=== PATIENT | female | born 1975 | race Caucasian/White ===

== ENCOUNTER 2017-06-26 05:14 | Emergency (ER) | payer BC ==
[~2017-06-26] VITALS: Ht 170.2 cm; Wt 93.9 kg
[~2017-06-26 05:14] MED LIST: ALBU90OI INH; AMOCLA875 PO; AMPDEX30CR PO; AMPDEX5 PO; ARIP10 PO; AZIT250 PO; Abilify5 MG; Amphetamine Sal30 MG PO; CITA20 PO; CLON1 PO; CODACE30 PO; CODGUAEL PO; CYCL10 PO; DIPH50 PO; DOCU100 PO; DOXY100 PO; DULO60 PO; ERYT.5TO OD; FLUV50 PO; Fluvoxamine Ma100 MG PO; HYDACE5 PO; IBUP800 PO; LEVFLO500 PO; LEVOFLOXACIN5 ML LEFTEYE; MELO7.5 PO; META800 PO; Mobic15 MG PO; ONDA4ODT MM; OXYACE5T PO; OXYACE7.5T PO; OXYC10ER PO; PRED20 PO; PROCODE120 PO; PROM25 PO; PROM25S PR; Pred Forte1 ML LEFTEYE; Prednisone20 MG PO; RISP1 PO; RXCODACET PO; SERT100; SPACE CHAMBER1 EACH MC; TRAM50 PO; TRIA55OI; Tussionex Penn480 ML PO; Ventolin/Prove6.7 GM INH; ZOLP5 PO; Zithromax250 MG PO; [UNRECOGNIZED DRUG - REMARK]
[2017-06-26 05:46] LABS: BASOPHILS ABSOLUTE AUTO 0.04 K/mm3 (0.00-0.23); BASOPHILS PERCENT AUTO 0 % (0-2); EOSINOPHILS ABSOLUTE AUTO 0.19 K/mm3 (0.00-0.68); EOSINOPHILS PERCENT AUTO 2 % (0-6); Hematocrit 41.4 % (33.0-51.0); Hemoglobin 14.1 g/dL (11.5-16.0); IMMATURE GRAN ABSOLUTE AUTO 0.02 K/mm3 (0.00-0.10); IMMATURE GRAN PERCENT AUTO 0 % (0-1); LYMPHOCYTES ABSOLUTE AUTO 3.22 K/mm3 (0.84-5.20); LYMPHOCYTES PERCENT AUTO 30 % (21-46); MONOCYTES ABSOLUTE AUTO 0.66 K/mm3 (0.16-1.47); MONOCYTES PERCENT AUTO 6 % (4-13); Mean Corpuscular HGB 31.4 pg (26.0-34.0); Mean Corpuscular HGB Conc 34.1 g/dL (31.5-36.5); Mean Corpuscular Volume 92 fL (80-100); Mean Platelet Volume 10.4 fL (9.1-12.4); NEUTROPHILS ABSOLUTE AUTO 6.65 K/mm3 (1.96-9.15); NEUTROPHILS PERCENT AUTO 62 % (41-73); Platelet Count 265 K/mm3 (150-400); RDW Coefficient Variation 13.1 % (11.7-14.2); RDW Standard Deviation 44.2 fL (35.1-46.3); Red Blood Cell Count 4.49 M/mm3 (3.80-5.20); White Blood Cell Count 10.78 K/mm3 (4.00-11.30)
[2017-06-26 06:09] LABS: Alanine Aminotransfer (ALT/SGP 27 U/L (12-78); Albumin/Globulin Ratio 1.1 (0.8-1.8); Alk Phos 96 U/L (50-136); Anion Gap 9 mmol/L (6-16); Aspartate Aminotrans (AST/SGOT 19 U/L (12-37); Bilirubin, Total 0.6 mg/dL (0.1-1.0); Blood Urea Nitrogen 15 mg/dL (8-24); Bun/Creatinine Ratio 16.6 (12.0-20.0); CO2, Blood 23 mmol/L (21-32); Calcium, Blood 9.2 mg/dL (8.5-10.1); Chloride, Blood 107 mmol/L (98-108); Creatinine, Blood 0.91 mg/dL (0.40-1.00); Globulin, Blood 3.6 g/dL (2.2-4.0); Glomerular Filtration Rate >60 (60-); Glucose, Blood 75 mg/dL (70-99); Potassium, Blood 3.1 mmol/L (3.5-5.5); Sodium, Blood 139 mmol/L (136-145); Total Protein, Blood 7.6 g/dL (6.4-8.2); Troponin I <0.015 ng/mL (0.000-0.040)
[2017-06-26] MEDS ORDERED: Albuterol2.5 MG/0.5 INH (06:50)
[2017-06-26] MEDS ORDERED: Prednisone20 MG PO (06:50)
[2018-04-29] MEDS ORDERED: Naltrexone HCl50 MG PO (22:08)
[2018-04-29] MEDS ORDERED: Fluvoxamine Ma100 MG PO (22:09)
[2018-04-29] MEDS ORDERED: BUPR100ER PO (22:09)
[2018-04-29] MEDS ORDERED: Robaxin750 MG PO (22:09)
[2018-04-30] MEDS ORDERED: CYCL10 PO (00:38)
== END 2017-06-26 07:17 | disposition home or self-care (01) ==
LOC: ER 05:14
PROVIDERS: Emergency Medicine
DX: J06.9 Acute upper respiratory infection, unspecified (principal); J98.01 Acute bronchospasm; R09.1 Pleurisy; F17.200 Nicotine dependence, unspecified, uncomplicated; F41.9 Anxiety disorder, unspecified; F32.9 Major depressive disorder, single episode, unspecified; F90.9 Attention-deficit hyperactivity disorder, unspecified type; Z88.1 Allergy status to other antibiotic agents; Z91.040 Latex allergy status; Z79.899 Other long term (current) drug therapy
CPT/HCPCS: 36415; 71046; 80053; 83690; 83880; 84484; 85025; 93005; 93010; 94640; 96361; 96374; 96375; 99284; J1170; J2405; J2930; J7030

== ENCOUNTER 2017-06-30 01:29 | Inpatient (IN) | payer BC ==
[~2017-06-30] VITALS: Ht 170.2 cm; Wt 100.7 kg
[~2017-06-30 01:29] MED LIST changes: +Albuterol2.5 MG/0.5 INH
[2017-06-30 02:55] LABS: BASOPHILS ABSOLUTE AUTO 0.04 K/mm3 (0.00-0.23); BASOPHILS PERCENT AUTO 0 % (0-2); EOSINOPHILS ABSOLUTE AUTO 0.02 K/mm3 (0.00-0.68); EOSINOPHILS PERCENT AUTO 0 % (0-6); Hematocrit 52.1 % (33.0-51.0); Hemoglobin 17.4 g/dL (11.5-16.0); IMMATURE GRAN ABSOLUTE AUTO 0.16 K/mm3 (0.00-0.10); IMMATURE GRAN PERCENT AUTO 1 % (0-1); LYMPHOCYTES ABSOLUTE AUTO 1.65 K/mm3 (0.84-5.20); LYMPHOCYTES PERCENT AUTO 9 % (21-46); MONOCYTES ABSOLUTE AUTO 0.63 K/mm3 (0.16-1.47); MONOCYTES PERCENT AUTO 4 % (4-13); Mean Corpuscular HGB 30.9 pg (26.0-34.0); Mean Corpuscular HGB Conc 33.4 g/dL (31.5-36.5); Mean Corpuscular Volume 92 fL (80-100); Mean Platelet Volume 10.5 fL (9.1-12.4); NEUTROPHILS PERCENT AUTO 86 % (41-73); Platelet Count 323 K/mm3 (150-400); RDW Coefficient Variation 12.9 % (11.7-14.2); RDW Standard Deviation 43.7 fL (35.1-46.3); Red Blood Cell Count 5.64 M/mm3 (3.80-5.20)
[2017-06-30 03:14] LABS: Magnesium, Blood 2.2 mg/dL (1.6-2.4)
[2017-06-30 03:20] LABS: Acetaminophen, Random <2.0 ug/mL (10.0-30.0); Alanine Aminotransfer (ALT/SGP 26 U/L (12-78); Albumin, Blood 4.2 g/dL (3.4-5.0); Albumin/Globulin Ratio 1.1 (0.8-1.8); Alk Phos 83 U/L (50-136); Anion Gap 10 mmol/L (6-16); Aspartate Aminotrans (AST/SGOT 13 U/L (12-37); Bilirubin, Total 0.7 mg/dL (0.1-1.0); Blood Urea Nitrogen 17 mg/dL (8-24); Bun/Creatinine Ratio 19.7 (12.0-20.0); CO2, Blood 25 mmol/L (21-32); Calcium, Blood 10.2 mg/dL (8.5-10.1); Chloride, Blood 101 mmol/L (98-108); Creatinine, Blood 0.86 mg/dL (0.40-1.00); Ethanol (Alcohol), Blood, Med <3 mg/dL; Globulin, Blood 3.9 g/dL (2.2-4.0); Glomerular Filtration Rate >60 (60-); Glucose, Blood 113 mg/dL (70-99); Potassium, Blood 3.8 mmol/L (3.5-5.5); Salicylate 4.1 mg/dL (2.8-20.0); Sodium, Blood 136 mmol/L (136-145); Total Protein, Blood 8.1 g/dL (6.4-8.2)
[2017-06-30 03:22] LABS: CPK Creatine Kinase 76 U/L (26-193); Creatine Kinase MB 2.1 ng/mL (0.0-3.6); Creatine Kinase MB Index 2.8 (0.0-4.0); Troponin I <0.015 ng/mL (0.000-0.040)
[2017-06-30 05:28] LABS: Source, Urine Catheter
[2017-06-30 05:48] LABS: Appearance, Urine Clear (Clear); Bilirubin, Urine 1+ (Neg); Blood, Urine Neg (Neg); Color, Urine Yellow (P-Yellow); Glucose Qualitative, Urine 1+ (Neg); Ketones, Urine 1+ (Neg); Leukocyte Esterase, Urine 1+ (Neg); Nitrite, Urine Neg (Neg); Protein, Urine 1+ (Neg); Urobilinogen, Urine 1+ (Normal)
[2017-06-30 05:49] LABS: Bacteria Mod /hpf; Calcium Oxalate Crystals Few /hpf; Mucus Light (0-Heavy); Red Blood Cells, Urine 0-2 /hpf (0-2); Squamous Epithelial Cells Few /hpf (Few); White Blood Cells, Urine 0-2 /hpf (0-5)
[2017-06-30 05:54] LABS: U Amphetamine Screen DETECTED; U Barbituate Screen Not Detected; U Benzodiazapine Screen Not Detected; U Buprenorphine Screen Not Detected; U Cannabinoids Screen DETECTED; U Cocaine Screen Not Detected; U Methadone Screen Not Detected; U Methamphetamine Screen Not Detected; U Opiates Screen DETECTED; U Oxycodone Screen DETECTED; U Phencyclidine Screen Not Detected; U Propoxyphene Screen Not Detected
[2017-07-01 05:23] LABS: BASOPHILS ABSOLUTE AUTO 0.03 K/mm3 (0.00-0.23); BASOPHILS PERCENT AUTO 0 % (0-2); EOSINOPHILS ABSOLUTE AUTO 0.01 K/mm3 (0.00-0.68); EOSINOPHILS PERCENT AUTO 0 % (0-6); Hematocrit 38.1 % (33.0-51.0); Hemoglobin 12.5 g/dL (11.5-16.0); IMMATURE GRAN ABSOLUTE AUTO 0.11 K/mm3 (0.00-0.10); IMMATURE GRAN PERCENT AUTO 1 % (0-1); LYMPHOCYTES ABSOLUTE AUTO 1.14 K/mm3 (0.84-5.20); LYMPHOCYTES PERCENT AUTO 6 % (21-46); MONOCYTES ABSOLUTE AUTO 1.17 K/mm3 (0.16-1.47); MONOCYTES PERCENT AUTO 6 % (4-13); Mean Corpuscular HGB 30.5 pg (26.0-34.0); Mean Corpuscular HGB Conc 32.8 g/dL (31.5-36.5); Mean Corpuscular Volume 93 fL (80-100); Mean Platelet Volume 10.1 fL (9.1-12.4); NEUTROPHILS ABSOLUTE AUTO 18.18 K/mm3 (1.96-9.15); NEUTROPHILS PERCENT AUTO 88 % (41-73); Platelet Count 216 K/mm3 (150-400); White Blood Cell Count 20.64 K/mm3 (4.00-11.30)
[2017-07-01 05:53] LABS: Anion Gap 8 mmol/L (6-16); Blood Urea Nitrogen 20 mg/dL (8-24); Bun/Creatinine Ratio 21.6 (12.0-20.0); CO2, Blood 26 mmol/L (21-32); Chloride, Blood 105 mmol/L (98-108); Creatinine, Blood 0.93 mg/dL (0.40-1.00); Glomerular Filtration Rate >60 (60-); Glucose, Blood 92 mg/dL (70-99); Potassium, Blood 4.2 mmol/L (3.5-5.5); Sodium, Blood 139 mmol/L (136-145)
[2017-07-01 05:54] LABS: Calcium, Blood 8.2 mg/dL (8.5-10.1)
[2017-07-02 04:55] LABS: BASOPHILS ABSOLUTE AUTO 0.01 K/mm3 (0.00-0.23); BASOPHILS PERCENT AUTO 0 % (0-2); EOSINOPHILS ABSOLUTE AUTO 0.17 K/mm3 (0.00-0.68); EOSINOPHILS PERCENT AUTO 1 % (0-6); Hematocrit 34.4 % (33.0-51.0); Hemoglobin 11.2 g/dL (11.5-16.0); IMMATURE GRAN ABSOLUTE AUTO 0.08 K/mm3 (0.00-0.10); IMMATURE GRAN PERCENT AUTO 1 % (0-1); LYMPHOCYTES ABSOLUTE AUTO 1.16 K/mm3 (0.84-5.20); LYMPHOCYTES PERCENT AUTO 9 % (21-46); MONOCYTES ABSOLUTE AUTO 0.54 K/mm3 (0.16-1.47); MONOCYTES PERCENT AUTO 4 % (4-13); Mean Corpuscular HGB 30.7 pg (26.0-34.0); Mean Corpuscular HGB Conc 32.6 g/dL (31.5-36.5); Mean Corpuscular Volume 94 fL (80-100); Mean Platelet Volume 10.1 fL (9.1-12.4); NEUTROPHILS ABSOLUTE AUTO 11.32 K/mm3 (1.96-9.15); NEUTROPHILS PERCENT AUTO 85 % (41-73); Platelet Count 205 K/mm3 (150-400); RDW Coefficient Variation 13.1 % (11.7-14.2); RDW Standard Deviation 45.1 fL (35.1-46.3); Red Blood Cell Count 3.65 M/mm3 (3.80-5.20); White Blood Cell Count 13.28 K/mm3 (4.00-11.30)
[2017-07-02 05:20] LABS: Anion Gap 6 mmol/L (6-16); Blood Urea Nitrogen 11 mg/dL (8-24); Bun/Creatinine Ratio 13.2 (12.0-20.0); CO2, Blood 27 mmol/L (21-32); Calcium, Blood 7.8 mg/dL (8.5-10.1); Chloride, Blood 105 mmol/L (98-108); Creatinine, Blood 0.83 mg/dL (0.40-1.00); Glomerular Filtration Rate >60 (60-); Glucose, Blood 94 mg/dL (70-99); Magnesium, Blood 2.1 mg/dL (1.6-2.4); Phosphorus, Blood 1.5 mg/dL (2.5-4.9); Potassium, Blood 3.6 mmol/L (3.5-5.5); Sodium, Blood 138 mmol/L (136-145)
[2017-07-05] MEDS ORDERED: HYDR1TAB94 PO (17:43)
[2018-04-29] MEDS ORDERED: Naltrexone HCl50 MG PO (22:08)
[2018-04-29] MEDS ORDERED: BUPR100ER PO (22:09)
[2018-04-29] MEDS ORDERED: Robaxin750 MG PO (22:09)
[2018-04-29] MEDS ORDERED: Fluvoxamine Ma100 MG PO (22:09)
[2018-04-30] MEDS ORDERED: CYCL10 PO (00:38)
== END 2017-07-05 18:00 | disposition home or self-care (01) | DRG 853 ==
LOC: ER 01:29 → SURS 06:16
PROVIDERS: Emergency Medicine; Surgery
PROC: 0D9670Z Drainage of Stomach with Drainage Device, Via Natural or Artificial Opening (ICD-10-PCS; 2017-06-30)
PROC: 0DU907Z Supplement Duodenum with Autologous Tissue Substitute, Open Approach (ICD-10-PCS; principal; 2017-06-30 07:45)
DX: A41.9 Sepsis, unspecified organism (principal); K25.5 Chronic or unspecified gastric ulcer with perforation; K65.9 Peritonitis, unspecified; F41.9 Anxiety disorder, unspecified; G47.9 Sleep disorder, unspecified; G89.29 Other chronic pain; M54.9 Dorsalgia, unspecified; M19.90 Unspecified osteoarthritis, unspecified site; F17.200 Nicotine dependence, unspecified, uncomplicated; F43.10 Post-traumatic stress disorder, unspecified; F32.9 Major depressive disorder, single episode, unspecified; Z79.52 Long term (current) use of systemic steroids; Z79.899 Other long term (current) drug therapy; Z88.1 Allergy status to other antibiotic agents; Z91.040 Latex allergy status
CPT/HCPCS: 36415; 74176; 80048; 80053; 81001; 82550; 82553; 83605; 83690; 83735; 84100; 84484; 85025; 87070; 87075; 87086; 87205; 87338; 93005; 93010; 94762; 96361; 96365; 96375; 96376; 99285; C9113; G0480; J1100; J1170; J1200; J1630; J1650; J1885; J2405; J2543; J3010; J7030; J7120

== ENCOUNTER 2017-09-26 09:33 | Emergency (ER) | payer BC ==
[~2017-09-26] VITALS: Ht 170.2 cm; Wt 95.2 kg
[~2017-09-26 09:33] MED LIST changes: +HYDR1TAB94 PO
[2017-09-26] MEDS ORDERED: OMEPRAZOLE MAGN20 MG PO (10:00)
[2017-09-26] MEDS ORDERED: ACET325 PO (10:01)
[2017-09-26] MEDS ORDERED: Percocet 5-3251 EACH PO (11:09)
== END 2017-09-26 11:24 | disposition home or self-care (01) ==
LOC: ER 09:33
DX: M54.5 Low back pain (principal); Z88.1 Allergy status to other antibiotic agents; Z91.040 Latex allergy status; Z79.899 Other long term (current) drug therapy; F41.9 Anxiety disorder, unspecified; F90.9 Attention-deficit hyperactivity disorder, unspecified type; F17.210 Nicotine dependence, cigarettes, uncomplicated; F32.9 Major depressive disorder, single episode, unspecified
CPT/HCPCS: 99283

== ENCOUNTER 2017-10-16 07:56 | Day surgery (SDC) | payer BC ==
[~2017-10-16] VITALS: Ht 172.7 cm; Wt 95.2 kg
[~2017-10-16 07:56] MED LIST changes: +ACET325 PO; +OMEPRAZOLE MAGN20 MG PO; +Percocet 5-3251 EACH PO
== END 2017-10-16 09:48 | disposition home or self-care (01) ==
LOC: ORSCSDS 07:56
PROVIDERS: Surgery
PROC: 0DB68ZX Excision of Stomach, Via Natural or Artificial Opening Endoscopic, Diagnostic (ICD-10-PCS; principal; 2017-10-16 09:15)
DX: K25.5 Chronic or unspecified gastric ulcer with perforation (principal); K21.9 Gastro-esophageal reflux disease without esophagitis; J45.909 Unspecified asthma, uncomplicated; F41.8 Other specified anxiety disorders; Z87.891 Personal history of nicotine dependence; Z79.899 Other long term (current) drug therapy
CPT/HCPCS: J7120

== ENCOUNTER 2019-04-12 11:56 | Emergency (ER) | payer BC ==
[~2019-04-12] VITALS: Ht 170.2 cm; Wt 104.3 kg
[~2019-04-12 11:56] MED LIST changes: +BUPR100ER PO; +Naltrexone HCl50 MG PO; +Robaxin750 MG PO
[2019-04-12 13:05] LABS: BASOPHILS ABSOLUTE AUTO 0.06 K/mm3 (0.00-0.23); BASOPHILS PERCENT AUTO 1 % (0-2); EOSINOPHILS ABSOLUTE AUTO 0.09 K/mm3 (0.00-0.68); EOSINOPHILS PERCENT AUTO 1 % (0-6); Hematocrit 40.9 % (33.0-51.0); Hemoglobin 12.7 g/dL (11.5-16.0); IMMATURE GRAN ABSOLUTE AUTO 0.04 K/mm3 (0.00-0.10); IMMATURE GRAN PERCENT AUTO 0 % (0-1); LYMPHOCYTES ABSOLUTE AUTO 1.78 K/mm3 (0.84-5.20); LYMPHOCYTES PERCENT AUTO 17 % (21-46); MONOCYTES ABSOLUTE AUTO 0.69 K/mm3 (0.16-1.47); MONOCYTES PERCENT AUTO 7 % (4-13); Mean Corpuscular HGB 26.6 pg (26.0-34.0); Mean Corpuscular HGB Conc 31.1 g/dL (31.5-36.5); Mean Corpuscular Volume 86 fL (80-100); Mean Platelet Volume 10.3 fL (9.1-12.4); NEUTROPHILS ABSOLUTE AUTO 7.94 K/mm3 (1.96-9.15); NEUTROPHILS PERCENT AUTO 75 % (41-73); Platelet Count 266 K/mm3 (150-400); RDW Coefficient Variation 15.9 % (11.7-14.2); RDW Standard Deviation 50.1 fL (35.1-46.3); Red Blood Cell Count 4.77 M/mm3 (3.80-5.20)
[2019-04-12 13:21] LABS: International Normalized Ratio 0.89; Prothrombin Time Results 9.5 Sec (9.7-11.5)
[2019-04-12 13:28] LABS: Alanine Aminotransfer (ALT/SGP 22 U/L (12-78); Albumin, Blood 3.8 g/dL (3.4-5.0); Albumin/Globulin Ratio 0.9 (0.8-1.8); Alk Phos 116 U/L (50-136); Anion Gap 6 mmol/L (6-16); Aspartate Aminotrans (AST/SGOT 17 U/L (12-37); Bilirubin, Total 0.3 mg/dL (0.1-1.0); Blood Urea Nitrogen 8 mg/dL (8-24); Bun/Creatinine Ratio 7.7 (12.0-20.0); CO2, Blood 28 mmol/L (21-32); Calcium, Blood 8.6 mg/dL (8.5-10.1); Chloride, Blood 105 mmol/L (98-108); Creatinine, Blood 1.04 mg/dL (0.40-1.00); Globulin, Blood 4.3 g/dL (2.2-4.0); Glomerular Filtration Rate >60 (60-); Glucose, Blood 88 mg/dL (70-99); Sodium, Blood 139 mmol/L (136-145); Total Protein, Blood 8.1 g/dL (6.4-8.2)
[2019-04-12] MEDS ORDERED: AMPDEX5 PO (14:21)
[2019-04-12 14:23] LABS: Source, Urine Clean Catch
[2019-04-12 14:25] LABS: Bilirubin, Urine Neg (Neg); Blood, Urine Neg (Neg); Glucose Qualitative, Urine Neg (Neg); Ketones, Urine Neg (Neg); Leukocyte Esterase, Urine Neg (Neg); Nitrite, Urine Neg (Neg); Protein, Urine Neg (Neg); Specific Gravity, Urine 1.015 (1.003-1.022); Urobilinogen, Urine NORM (Normal); pH, Urine 6.5 (5.0-8.0)
[2019-04-12 14:33] LABS: Appearance, Urine Clear (Clear); Color, Urine Yellow (P-Yellow)
[2019-04-12] MEDS ORDERED: HYDR25SUP PR (14:40)
[2019-04-12] MEDS ORDERED: Kristalose20 GM PO (14:40)
== END 2019-04-12 14:51 | disposition home or self-care (01) ==
LOC: ER 11:56
PROVIDERS: Physician Assistant
DX: K64.9 Unspecified hemorrhoids (principal); K59.00 Constipation, unspecified; F41.9 Anxiety disorder, unspecified; F43.10 Post-traumatic stress disorder, unspecified; F90.9 Attention-deficit hyperactivity disorder, unspecified type; F17.210 Nicotine dependence, cigarettes, uncomplicated; Z88.1 Allergy status to other antibiotic agents; Z91.040 Latex allergy status; Z88.8 Allergy status to other drugs, medicaments and biological substances; Z79.899 Other long term (current) drug therapy
CPT/HCPCS: 36415; 46600; 74018; 80053; 81003; 85025; 85610; 85730; 99283-25

== ENCOUNTER 2019-05-02 16:41 | Emergency (ER) | payer BC ==
[~2019-05-02] VITALS: Ht 170.2 cm; Wt 99.8 kg
[~2019-05-02 16:41] MED LIST changes: +HYDR25SUP PR; +Kristalose20 GM PO
== END 2019-05-02 17:04 | disposition home or self-care (01) ==
LOC: ER 16:41
DX: T81.31XA Disruption of external operation (surgical) wound, not elsewhere classified, initial encounter (principal); F43.10 Post-traumatic stress disorder, unspecified; F90.9 Attention-deficit hyperactivity disorder, unspecified type; F17.210 Nicotine dependence, cigarettes, uncomplicated; Z85.828 Personal history of other malignant neoplasm of skin; Z88.1 Allergy status to other antibiotic agents; Z91.040 Latex allergy status; Z79.899 Other long term (current) drug therapy
CPT/HCPCS: 99282

== ENCOUNTER 2020-10-24 16:48 | Emergency (ER) | payer BC ==
[~2020-10-24] VITALS: Ht 160 cm; Wt 65.8 kg
[2020-10-24 17:46] LABS: BASOPHILS ABSOLUTE AUTO 0.04 K/mm3 (0.00-0.23); BASOPHILS PERCENT AUTO 0 % (0-2); EOSINOPHILS ABSOLUTE AUTO 0.04 K/mm3 (0.00-0.68); EOSINOPHILS PERCENT AUTO 0 % (0-6); Hematocrit 42.4 % (33.0-51.0); Hemoglobin 13.6 g/dL (11.5-16.0); IMMATURE GRAN ABSOLUTE AUTO 0.02 K/mm3 (0.00-0.10); IMMATURE GRAN PERCENT AUTO 0 % (0-1); LYMPHOCYTES ABSOLUTE AUTO 2.38 K/mm3 (0.84-5.20); LYMPHOCYTES PERCENT AUTO 23 % (21-46); MONOCYTES ABSOLUTE AUTO 0.65 K/mm3 (0.16-1.47); MONOCYTES PERCENT AUTO 6 % (4-13); Mean Corpuscular HGB 27.4 pg (26.0-34.0); Mean Corpuscular HGB Conc 32.1 g/dL (31.5-36.5); Mean Corpuscular Volume 86 fL (80-100); NEUTROPHILS ABSOLUTE AUTO 7.02 K/mm3 (1.96-9.15); NEUTROPHILS PERCENT AUTO 69 % (41-73); Platelet Count 317 K/mm3 (150-400); RDW Standard Deviation 46.6 fL (35.1-46.3); Red Blood Cell Count 4.96 M/mm3 (3.80-5.20); White Blood Cell Count 10.15 K/mm3 (4.00-11.30)
[2020-10-24 18:09] LABS: Alanine Aminotransfer (ALT/SGP 25 U/L (12-78); Albumin, Blood 5.1 g/dL (3.4-5.0); Albumin/Globulin Ratio 1.3 (0.8-1.8); Alk Phos 72 U/L (50-136); Anion Gap 9 mmol/L (6-16); Aspartate Aminotrans (AST/SGOT 25 U/L (12-37); Bilirubin, Total 1.1 mg/dL (0.1-1.0); Blood Urea Nitrogen 13 mg/dL (8-24); Bun/Creatinine Ratio 13.8 (12.0-20.0); CO2, Blood 24 mmol/L (21-32); Calcium, Blood 10.8 mg/dL (8.5-10.1); Chloride, Blood 106 mmol/L (98-108); Creatinine, Blood 0.94 mg/dL (0.40-1.00); Glomerular Filtration Rate >60 (60-); Glucose, Blood 99 mg/dL (70-99); Potassium, Blood 4.3 mmol/L (3.5-5.5); Sodium, Blood 139 mmol/L (136-145); Total Protein, Blood 9.1 g/dL (6.4-8.2)
== END 2020-10-24 19:48 | disposition home or self-care (01) ==
LOC: ER 16:48
PROVIDERS: Emergency Medicine
DX: T67.5XXA Heat exhaustion, unspecified, initial encounter (principal); F17.210 Nicotine dependence, cigarettes, uncomplicated; Z88.1 Allergy status to other antibiotic agents; Z91.040 Latex allergy status; Z79.899 Other long term (current) drug therapy
CPT/HCPCS: 36415; 80053; 85025; 93005; 93010; 96361; 96374; 99285-25; J2405; J7030

== ENCOUNTER 2021-01-01 07:07 | Emergency (ER) | payer BC ==
[~2021-01-01] VITALS: Ht 170.2 cm; Wt 77.1 kg
[2021-01-01] MEDS ORDERED: Amphetamine Sal30 MG PO (07:23)
[2021-01-01] MEDS ORDERED: Methocarbamol750 MG PO (07:24)
== END 2021-01-01 08:30 | disposition home or self-care (01) ==
LOC: ER 07:07
DX: T22.111A Burn of first degree of right forearm, initial encounter (principal); F17.210 Nicotine dependence, cigarettes, uncomplicated
CPT/HCPCS: 16000; 99283

== ENCOUNTER 2021-08-20 18:50 | Emergency (ER) | payer BC ==
[~2021-08-20] VITALS: Ht 170.2 cm; Wt 72.6 kg
[~2021-08-20 18:50] MED LIST changes: +Methocarbamol750 MG PO
[2021-08-20] MEDS ORDERED: HYDHCL25 PO (20:45)
== END 2021-08-20 20:56 | disposition home or self-care (01) ==
LOC: ER 18:50
DX: L85.3 Xerosis cutis (principal); Z79.899 Other long term (current) drug therapy; Z91.040 Latex allergy status; F17.210 Nicotine dependence, cigarettes, uncomplicated
CPT/HCPCS: 99283; A9270

== ENCOUNTER 2021-08-26 19:10 | Emergency (ER) | payer BC ==
[~2021-08-26] VITALS: Ht 170.2 cm; Wt 68.0 kg
[~2021-08-26 19:10] MED LIST changes: +HYDHCL25 PO
[2021-08-26] MEDS ORDERED: NEOMYCIN-POLYMY10 ML LEFTEAR (20:13)
== END 2021-08-26 20:46 | disposition home or self-care (01) ==
LOC: ER 19:10
DX: S09.91XA Unspecified injury of ear, initial encounter (principal); F17.210 Nicotine dependence, cigarettes, uncomplicated; Z79.899 Other long term (current) drug therapy; Z91.040 Latex allergy status; X58.XXXA Exposure to other specified factors, initial encounter
CPT/HCPCS: 96372; 99282; J1885

== ENCOUNTER 2022-03-30 05:59 | Emergency (ER) | payer BC ==
[~2022-03-30] VITALS: Ht 170.2 cm; Wt 81.6 kg
[~2022-03-30 05:59] MED LIST changes: +NEOMYCIN-POLYMY10 ML LEFTEAR
== END 2022-03-30 07:50 | disposition home or self-care (01) ==
LOC: ER 05:59
DX: S50.11XA Contusion of right forearm, initial encounter (principal); S60.221A Contusion of right hand, initial encounter; F17.210 Nicotine dependence, cigarettes, uncomplicated; Z88.1 Allergy status to other antibiotic agents; Z91.040 Latex allergy status; Z79.899 Other long term (current) drug therapy; X58.XXXA Exposure to other specified factors, initial encounter
CPT/HCPCS: 73090; 73130; A9270; J1885

== ENCOUNTER 2022-06-20 10:36 | Emergency (ER) | payer BC ==
[~2022-06-20] VITALS: Ht 170.2 cm; Wt 79.4 kg
[2022-06-20 11:27] LABS: BASOPHILS ABSOLUTE AUTO 0.06 K/mm3 (0.00-0.23); BASOPHILS PERCENT AUTO 1 % (0-2); EOSINOPHILS ABSOLUTE AUTO 0.07 K/mm3 (0.00-0.68); EOSINOPHILS PERCENT AUTO 1 % (0-6); Hematocrit 41.8 % (33.0-51.0); Hemoglobin 13.7 g/dL (11.5-16.0); IMMATURE GRAN ABSOLUTE AUTO 0.01 K/mm3 (0.00-0.10); IMMATURE GRAN PERCENT AUTO 0 % (0-1); LYMPHOCYTES ABSOLUTE AUTO 2.26 K/mm3 (0.84-5.20); LYMPHOCYTES PERCENT AUTO 31 % (21-46); MONOCYTES ABSOLUTE AUTO 0.45 K/mm3 (0.16-1.47); MONOCYTES PERCENT AUTO 6 % (4-13); Mean Corpuscular HGB 28.5 pg (26.0-34.0); Mean Corpuscular HGB Conc 32.8 g/dL (31.5-36.5); Mean Corpuscular Volume 87 fL (80-100); Mean Platelet Volume 10.5 fL (9.1-12.4); NEUTROPHILS ABSOLUTE AUTO 4.47 K/mm3 (1.96-9.15); NEUTROPHILS PERCENT AUTO 61 % (41-73); Platelet Count 299 K/mm3 (150-400); RDW Standard Deviation 51.8 fL (35.1-46.3); White Blood Cell Count 7.32 K/mm3 (4.00-11.30)
[2022-06-20 11:45] LABS: Albumin, Blood 4.1 g/dL (3.4-5.0); Albumin/Globulin Ratio 1.1 (0.8-1.8); Bilirubin, Total 0.6 mg/dL (0.1-1.0); Bun/Creatinine Ratio 10.3 (12.0-20.0); Creatinine, Blood 0.68 mg/dL (0.40-1.00); Globulin, Blood 3.6 g/dL (2.2-4.0); Total Protein, Blood 7.7 g/dL (6.4-8.2)
[2022-06-20 13:35] LABS: Source, Urine Clean Catch
[2022-06-20 13:40] LABS: Appearance, Urine Clear (Clear); Bilirubin, Urine Neg (Neg); Blood, Urine Neg (Neg); Color, Urine Yellow (P-Yellow); Glucose Qualitative, Urine Neg (Neg); Ketones, Urine Neg (Neg); Leukocyte Esterase, Urine Neg (Neg); Nitrite, Urine Neg (Neg); Protein, Urine Neg (Neg); Urobilinogen, Urine NORM (Normal)
[2022-06-20 14:35] LABS: U Amphetamine Screen DETECTED
[2022-06-20 14:36] LABS: U Barbituate Screen Not Detected; U Benzodiazapine Screen Not Detected; U Buprenorphine Screen Not Detected; U Cannabinoids Screen DETECTED; U Cocaine Screen Not Detected; U Methadone Screen Not Detected; U Methamphetamine Screen Not Detected; U Opiates Screen Not Detected; U Oxycodone Screen Not Detected; U Phencyclidine Screen Not Detected; U Propoxyphene Screen Not Detected
[2022-06-20] MEDS ORDERED: MEDR10 PO (15:47)
[2022-06-20] MEDS ORDERED: BUSP5 PO (15:47)
== END 2022-06-20 15:53 | disposition home or self-care (01) ==
LOC: ER 10:36
PROVIDERS: Physician Assistant
DX: D25.9 Leiomyoma of uterus, unspecified (principal); N93.8 Other specified abnormal uterine and vaginal bleeding; N83.202 Unspecified ovarian cyst, left side; F17.210 Nicotine dependence, cigarettes, uncomplicated; Z79.899 Other long term (current) drug therapy; Z88.1 Allergy status to other antibiotic agents; Z88.8 Allergy status to other drugs, medicaments and biological substances; Z91.040 Latex allergy status
CPT/HCPCS: 36415; 76830; 76856; 80053; 81003; 84703; 85025; 99283; G0480

== ENCOUNTER 2022-08-27 05:58 | Emergency (ER) | payer BC ==
[~2022-08-27] VITALS: Ht 167.6 cm; Wt 83.5 kg
[~2022-08-27 05:58] MED LIST changes: +BUSP5 PO; +MEDR10 PO
[2022-08-27 06:40] LABS: BASOPHILS ABSOLUTE AUTO 0.05 K/mm3 (0.00-0.23); BASOPHILS PERCENT AUTO 0 % (0-2); EOSINOPHILS ABSOLUTE AUTO 0.11 K/mm3 (0.00-0.68); EOSINOPHILS PERCENT AUTO 1 % (0-6); Hematocrit 46.2 % (33.0-51.0); Hemoglobin 15.6 g/dL (11.5-16.0); IMMATURE GRAN ABSOLUTE AUTO 0.03 K/mm3 (0.00-0.10); IMMATURE GRAN PERCENT AUTO 0 % (0-1); LYMPHOCYTES ABSOLUTE AUTO 2.71 K/mm3 (0.84-5.20); LYMPHOCYTES PERCENT AUTO 22 % (21-46); MONOCYTES ABSOLUTE AUTO 0.75 K/mm3 (0.16-1.47); MONOCYTES PERCENT AUTO 6 % (4-13); Mean Corpuscular HGB 30.1 pg (26.0-34.0); Mean Corpuscular HGB Conc 33.8 g/dL (31.5-36.5); Mean Corpuscular Volume 89 fL (80-100); Mean Platelet Volume 9.9 fL (9.1-12.4); NEUTROPHILS ABSOLUTE AUTO 8.46 K/mm3 (1.96-9.15); NEUTROPHILS PERCENT AUTO 70 % (41-73); Platelet Count 316 K/mm3 (150-400); RDW Standard Deviation 49.7 fL (35.1-46.3); Red Blood Cell Count 5.18 M/mm3 (3.80-5.20); White Blood Cell Count 12.11 K/mm3 (4.00-11.30)
[2022-08-27 06:45] LABS: Source, Urine Clean Catch
[2022-08-27 06:54] LABS: Bilirubin, Urine Neg (Neg); Blood, Urine Neg (Neg); Glucose Qualitative, Urine Neg (Neg); Ketones, Urine Neg (Neg); Leukocyte Esterase, Urine Neg (Neg); Nitrite, Urine Neg (Neg); Protein, Urine Neg (Neg); Urobilinogen, Urine NORM (Normal)
[2022-08-27 06:58] LABS: Albumin, Blood 4.3 g/dL (3.4-5.0); Albumin/Globulin Ratio 1.1 (0.8-1.8); Bilirubin, Total 0.8 mg/dL (0.1-1.0); Bun/Creatinine Ratio 17.4 (12.0-20.0); Calcium, Blood 9.6 mg/dL (8.5-10.1); Creatinine, Blood 0.63 mg/dL (0.40-1.00); Globulin, Blood 3.9 g/dL (2.2-4.0); Total Protein, Blood 8.2 g/dL (6.4-8.2)
[2022-08-27 06:59] LABS: Appearance, Urine Clear (Clear); Color, Urine Yellow (P-Yellow)
[2022-08-27] MEDS ORDERED: Flexeril5 MG PO (07:52)
== END 2022-08-27 08:09 | disposition home or self-care (01) ==
LOC: ER 05:58
PROVIDERS: Emergency Medicine
DX: S39.012A Strain of muscle, fascia and tendon of lower back, initial encounter (principal); X58.XXXA Exposure to other specified factors, initial encounter; F17.210 Nicotine dependence, cigarettes, uncomplicated; F17.290 Nicotine dependence, other tobacco product, uncomplicated; Z88.1 Allergy status to other antibiotic agents; Z91.040 Latex allergy status; Z79.899 Other long term (current) drug therapy
CPT/HCPCS: 80053; 81003; 83690; 85025; A9270; J1885

== ENCOUNTER 2022-09-08 08:28 | Emergency (ER) | payer BC ==
[~2022-09-08] VITALS: Ht 167.6 cm; Wt 86.2 kg
[~2022-09-08 08:28] MED LIST changes: +Flexeril5 MG PO
[2022-09-08] MEDS ORDERED: Amoxicillin500 MG PO ×2 (09:09→09:49)
[2022-09-08] MEDS ORDERED: HYDR1TAB94 PO ×2 (09:09→09:49)
== END 2022-09-08 09:21 | disposition home or self-care (01) ==
LOC: ER 08:28
DX: K04.7 Periapical abscess without sinus (principal); F17.210 Nicotine dependence, cigarettes, uncomplicated; Z88.1 Allergy status to other antibiotic agents; Z91.040 Latex allergy status; Z79.899 Other long term (current) drug therapy
CPT/HCPCS: 96372; 99282-25; J1885

== ENCOUNTER 2022-10-19 10:44 | Emergency (ER) | payer BC ==
[~2022-10-19] VITALS: Ht 167.6 cm; Wt 86.2 kg
[~2022-10-19 10:44] MED LIST changes: +Amoxicillin500 MG PO
[2022-10-19 11:49] VITALS: BP 143/101
[2022-10-19] MEDS ORDERED: AMOCLA875 PO (12:34)
== END 2022-10-19 13:25 | disposition home or self-care (01) ==
LOC: ER 10:44
DX: J32.9 Chronic sinusitis, unspecified (principal); Z88.1 Allergy status to other antibiotic agents; Z91.040 Latex allergy status; Z79.899 Other long term (current) drug therapy; F43.10 Post-traumatic stress disorder, unspecified; M19.90 Unspecified osteoarthritis, unspecified site; F17.210 Nicotine dependence, cigarettes, uncomplicated
CPT/HCPCS: J1885

== ENCOUNTER 2023-03-11 08:18 | Emergency (ER) | payer OTHER ==
[~2023-03-11] VITALS: Ht 170.2 cm; Wt 95.2 kg
[~2023-03-11 08:18] MED LIST changes: +GABA100 PO; +PROGESTERONE5000 GM; +TRAZ50 PO; +VITAMIN D5000 UNIT PO
[2023-03-11 08:48] VITALS: BP 146/93
[2023-03-11 09:19] LABS: BASOPHILS ABSOLUTE AUTO 0.06 K/mm3 (0.00-0.23); BASOPHILS PERCENT AUTO 1 % (0-2); EOSINOPHILS ABSOLUTE AUTO 0.13 K/mm3 (0.00-0.68); EOSINOPHILS PERCENT AUTO 2 % (0-6); Hematocrit 44.6 % (33.0-51.0); Hemoglobin 15.5 g/dL (11.5-16.0); IMMATURE GRAN ABSOLUTE AUTO 0.03 K/mm3 (0.00-0.10); IMMATURE GRAN PERCENT AUTO 0 % (0-1); LYMPHOCYTES ABSOLUTE AUTO 2.02 K/mm3 (0.84-5.20); LYMPHOCYTES PERCENT AUTO 24 % (21-46); MONOCYTES PERCENT AUTO 6 % (4-13); Mean Corpuscular HGB 30.8 pg (26.0-34.0); Mean Corpuscular HGB Conc 34.8 g/dL (31.5-36.5); Mean Corpuscular Volume 89 fL (80-100); Mean Platelet Volume 9.6 fL (9.1-12.4); NEUTROPHILS PERCENT AUTO 67 % (41-73); Platelet Count 264 K/mm3 (150-400); RDW Coefficient Variation 11.9 % (11.7-14.2); RDW Standard Deviation 38.6 fL (35.1-46.3); Red Blood Cell Count 5.03 M/mm3 (3.80-5.20); White Blood Cell Count 8.34 K/mm3 (4.00-11.30)
[2023-03-11 09:35] LABS: Albumin, Blood 3.7 g/dL (3.4-5.0); Albumin/Globulin Ratio 0.9 (0.8-1.8); Bun/Creatinine Ratio 14.2 (12.0-20.0); Calcium, Blood 8.6 mg/dL (8.5-10.1); Creatinine, Blood 0.71 mg/dL (0.40-1.00); Globulin, Blood 3.9 g/dL (2.2-4.0); Potassium, Blood 3.8 mmol/L (3.5-5.5); Total Protein, Blood 7.6 g/dL (6.4-8.2)
== END 2023-03-11 10:25 | disposition home or self-care (01) ==
LOC: ER 08:18
PROVIDERS: Student in an Organized Health Care Education/Training Program
DX: R00.2 Palpitations (principal); Z88.1 Allergy status to other antibiotic agents; Z91.040 Latex allergy status; Z79.899 Other long term (current) drug therapy; F43.10 Post-traumatic stress disorder, unspecified; M19.90 Unspecified osteoarthritis, unspecified site; F17.210 Nicotine dependence, cigarettes, uncomplicated
CPT/HCPCS: 71046; 80053; 84484; 85025; 93005; 93010; 99285-25

== ENCOUNTER → 2023-06-06 | Outpatient (CLI) | payer OTHER | LOC: LAB 08:16 → LAB SHORT 08:16 | DX: N85.01 Benign endometrial hyperplasia (principal) | CPT/HCPCS: 88305 ==

== ENCOUNTER → 2023-06-06 | Outpatient (CLI) | payer OTHER ==
[2023-06-15 10:12] LABS: HPV GENOTYPE 16 Not Detected; HPV GENOTYPE 18 Not Detected; HPV HIGH RISK Not Detected; HPV SOURCE Vaginal
== END ==
LOC: LAB 17:07 → LAB SHORT 17:07
PROVIDERS: Obstetrics & Gynecology
DX: Z01.419 Encounter for gynecological examination (general) (routine) without abnormal findings (principal)
CPT/HCPCS: 87624; G0123

== ENCOUNTER → 2023-06-15 | Outpatient (CLI) | payer OTHER ==
[2023-06-15 14:53] LABS: Stool Occult Bld Immuno 1 Negative (NEGATIVE)
[2023-06-15 16:22] LABS: Adenovirus F 40/41 Not Detected (NOT DETECT); Astrovirus Not Detected (NOT DETECT); Campylobacter Sp Not Detected (NOT DETECT); Cryptosporidium Not Detected (NOT DETECT); Cyclospora Cayetanensis Not Detected (NOT DETECT); E. Coli O157 Not Detected (NOT DETECT); Entamoeba Histolytica Not Detected (NOT DETECT); Enteroaggregative E. coli-EAEC Not Detected (NOT DETECT); Enteropathogenic E. coli-EPEC Not Detected (NOT DETECT); Enterotoxigenic E. coli-ETEC Not Detected (NOT DETECT); Giardia Lamblia Not Detected (NOT DETECT); Norovirus GI/GII Not Detected (NOT DETECT); Plesiomonas Shigelloides Not Detected (NOT DETECT); Rotavirus A Not Detected (NOT DETECT); Salmonella Sp Not Detected (NOT DETECT); Sapovirus Not Detected (NOT DETECT); Shiga Toxin-prod E. coli-STEC Not Detected (NOT DETECT); Shigella/Enteroin E. coli-EIEC Not Detected (NOT DETECT); Vibrio Cholerae Not Detected (NOT DETECT); Vibrio Sp Not Detected (NOT DETECT); Yersinia Enterocolitica Not Detected (NOT DETECT)
== END | disposition home or self-care (01) ==
LOC: LAB 08:15 → LAB SHORT 08:15
PROVIDERS: Nurse Practitioner Family
DX: R19.7 Diarrhea, unspecified (principal)
CPT/HCPCS: 87507; G0328

== ENCOUNTER 2025-02-17 20:45 | Observation (INO) | payer OTHER ==
[~2025-02-17] VITALS: Ht 170.2 cm; Wt 96.6 kg
[~2025-02-17 20:45] MED LIST changes: +AMITRIPTYLINE H25 MG PO; +ESTRADIOL (TWI1 EAC2 TD; +KETO10 PO; +MASOPHEN325 M3 PO
[2025-02-17 21:13] LABS: BASOPHILS ABSOLUTE AUTO 0.06 K/mm3 (0.00-0.23); BASOPHILS PERCENT AUTO 1 % (0-2); EOSINOPHILS ABSOLUTE AUTO 0.14 K/mm3 (0.00-0.68); EOSINOPHILS PERCENT AUTO 1 % (0-6); Hematocrit 42.5 % (33.0-51.0); Hemoglobin 14.4 g/dL (11.5-16.0); IMMATURE GRAN ABSOLUTE AUTO 0.03 K/mm3 (0.00-0.10); IMMATURE GRAN PERCENT AUTO 0 % (0-1); LYMPHOCYTES ABSOLUTE AUTO 2.58 K/mm3 (0.84-5.20); LYMPHOCYTES PERCENT AUTO 20 % (21-46); MONOCYTES ABSOLUTE AUTO 0.81 K/mm3 (0.16-1.47); MONOCYTES PERCENT AUTO 6 % (4-13); Mean Corpuscular HGB Conc 33.9 g/dL (31.5-36.5); Mean Corpuscular Volume 90 fL (80-100); NEUTROPHILS ABSOLUTE AUTO 9.61 K/mm3 (1.96-9.15); NEUTROPHILS PERCENT AUTO 73 % (41-73); NRBC ABSOLUTE 0.00 K/mm3 (0.00-0.02); NRBC Auto 0.0 /100 WBC (0.0-0.2); Platelet Count 278 K/mm3 (150-400); RDW Coefficient Variation 13.2 % (11.7-14.2); RDW Standard Deviation 43.6 fL (35.1-46.3)
[2025-02-17] MEDS ORDERED: NS 1,000 ML IV SCH (21:15)
[2025-02-17] MEDS ORDERED: Ketorolac Tromethamine 15mg Vial IV ONE (21:15)
[2025-02-17 21:48] LABS: Ethanol (Alcohol), Blood, Med <3 mg/dL; Magnesium, Blood 2.0 mg/dL (1.6-2.4)
[2025-02-17 21:49] LABS: Alanine Aminotransfer (ALT/SGP 26 U/L (12-78); Albumin, Blood 3.6 g/dL (3.4-5.0); Albumin/Globulin Ratio 1.0 (0.8-1.8); Anion Gap 7 mmol/L (3-11); Aspartate Aminotrans (AST/SGOT 21 U/L (12-37); Bilirubin, Total 0.5 mg/dL (0.1-1.0); Blood Urea Nitrogen 10 mg/dL (8-24); CO2, Blood 26 mmol/L (21-32); Calcium, Blood 8.6 mg/dL (8.5-10.1); Chloride, Blood 112 mmol/L (98-108); Creatinine, Blood 0.85 mg/dL (0.40-1.00); Globulin, Blood 3.5 g/dL (2.2-4.0); Glucose, Blood 116 mg/dL (70-99); Potassium, Blood 3.7 mmol/L (3.5-5.5); Sodium, Blood 141 mmol/L (136-145); Total Protein, Blood 7.1 g/dL (6.4-8.2)
[2025-02-17 22:30] VITALS: BP 137/88
[2025-02-17 23:00] VITALS: BP 119/70
[2025-02-17 23:05] LABS: pH Blood Venous 7.34 (7.34-7.37)
[2025-02-17 23:30] VITALS: BP 117/65
[2025-02-18] VITALS (9 sets, daily range): BP systolic 108–145; BP diastolic 77–101
[2025-02-18] MEDS ORDERED: HYDROcodone 5-APAP 325 TAB PO ONE (02:15)
[2025-02-18] MEDS ORDERED: Lidocaine 4% 1 Patch TOP ONE (02:15)
[2025-02-18] MEDS ORDERED: Ondansetron HCl 2 MG / ML 2ML Vial IV PRN (03:05)
[2025-02-18] MEDS ORDERED: Ketorolac Tromethamine 15mg Vial IV PRN (03:45)
[2025-02-18 06:23] LABS: Source, Urine Clean Catch
[2025-02-18 06:32] LABS: Bilirubin, Urine Neg (Neg); Color, Urine Yellow (P-Yellow); Glucose Qualitative, Urine 3+ (Neg); Ketones, Urine Neg (Neg); Leukocyte Esterase, Urine Neg (Neg); Protein, Urine Neg (Neg); Specific Gravity, Urine 1.020 (1.003-1.022); Urobilinogen, Urine NORM (Normal)
[2025-02-18 06:46] LABS: U Amphetamine Screen Not Detected; U Barbituate Screen Not Detected; U Benzodiazapine Screen Not Detected; U Buprenorphine Screen Not Detected; U Cannabinoids Screen DETECTED; U Cocaine Screen Not Detected; U Methadone Screen Not Detected; U Methamphetamine Screen Not Detected; U Opiates Screen Not Detected; U Oxycodone Screen Not Detected; U Phencyclidine Screen Not Detected
[2025-02-18] MEDS ORDERED: Enoxaparin 40 MG/0.4 ML SYR SC SCH (09:00)
[2025-02-18 09:51] LABS: BASOPHILS ABSOLUTE AUTO 0.04 K/mm3 (0.00-0.23); BASOPHILS PERCENT AUTO 0 % (0-2); EOSINOPHILS ABSOLUTE AUTO 0.02 K/mm3 (0.00-0.68); EOSINOPHILS PERCENT AUTO 0 % (0-6); Hematocrit 45.8 % (33.0-51.0); Hemoglobin 15.3 g/dL (11.5-16.0); IMMATURE GRAN ABSOLUTE AUTO 0.04 K/mm3 (0.00-0.10); IMMATURE GRAN PERCENT AUTO 0 % (0-1); LYMPHOCYTES ABSOLUTE AUTO 1.22 K/mm3 (0.84-5.20); LYMPHOCYTES PERCENT AUTO 13 % (21-46); MONOCYTES ABSOLUTE AUTO 0.15 K/mm3 (0.16-1.47); MONOCYTES PERCENT AUTO 2 % (4-13); Mean Corpuscular HGB Conc 33.4 g/dL (31.5-36.5); Mean Corpuscular Volume 90 fL (80-100); NEUTROPHILS ABSOLUTE AUTO 7.64 K/mm3 (1.96-9.15); NEUTROPHILS PERCENT AUTO 84 % (41-73); NRBC ABSOLUTE 0.00 K/mm3 (0.00-0.02); NRBC Auto 0.0 /100 WBC (0.0-0.2); Platelet Count 275 K/mm3 (150-400); RDW Coefficient Variation 13.2 % (11.7-14.2); RDW Standard Deviation 43.6 fL (35.1-46.3)
[2025-02-18 10:20] LABS: Alanine Aminotransfer (ALT/SGP 28 U/L (12-78); Albumin, Blood 3.7 g/dL (3.4-5.0); Albumin/Globulin Ratio 0.9 (0.8-1.8); Anion Gap 7 mmol/L (3-11); Aspartate Aminotrans (AST/SGOT 23 U/L (12-37); Bilirubin, Total 0.7 mg/dL (0.1-1.0); Blood Urea Nitrogen 10 mg/dL (8-24); CHOL/HDL RATIO 3.1; CO2, Blood 27 mmol/L (21-32); Calcium, Blood 9.1 mg/dL (8.5-10.1); Chloride, Blood 110 mmol/L (98-108); Cholesterol 245 mg/dL (50-200); Creatinine, Blood 0.85 mg/dL (0.40-1.00); Globulin, Blood 4.0 g/dL (2.2-4.0); Glucose, Blood 125 mg/dL (70-99); HDL Cholesterol 79 mg/dL (>39); LDL/HDL RATIO 1.9; Low Density Lipoprotein Chol 152 mg/dL (0-110); Magnesium, Blood 2.2 mg/dL (1.6-2.4); Potassium, Blood 4.7 mmol/L (3.5-5.5); Sodium, Blood 139 mmol/L (136-145); Thyroid Stimulating Hormone 1.510 uIU/mL (0.360-4.800); Total Protein, Blood 7.7 g/dL (6.4-8.2); Triglycerides 71 mg/dL (30-160); Very Low Density Lipoprot Chol 14 mg/dL (6-32)
[2025-02-18] MEDS ORDERED: Metoclopramide HCl 5MG / ML 2ML Vial IV STA (13:54)
[2025-02-18] MEDS ORDERED: Ketorolac Tromethamine 30mg Vial IV PRN (14:00)
[2025-02-18] MEDS ORDERED: BACL10 PO (14:10)
[2025-02-18] MEDS ORDERED: GABA300 PO (14:10)
[2025-02-18] MEDS ORDERED: Albuterol HFA200 ACT/6.7 GM INH INH PRN (15:10)
--- NOTE | 2025-02-18 17:41 | NUR ---
PATIENT DC'D TO HOME WITH FAMILY. DC INSTRUCTIONS AND EDUCATION DISCUSSED WITH PATIENT AND COPY PROVIDED. NO NEW RX MEDICATIONS. PATIEN TO F/U WITH PCP NEUROLOGIST. PATIENT DENIES ANY FURTHER QUESTIONS OR CONCERNS.
== END 2025-02-18 17:35 | disposition home health service (06) ==
LOC: ER 20:45 → ERHOLD 20:46 → MEDS 02-18 12:45
PROVIDERS: Emergency Medicine; Student in an Organized Health Care Education/Training Program; ADMIT Student in an Organized Health Care Education/Training Program
DX: R53.1 Weakness (principal); E04.1 Nontoxic single thyroid nodule; R09.02 Hypoxemia; F12.90 Cannabis use, unspecified, uncomplicated; F90.9 Attention-deficit hyperactivity disorder, unspecified type; F17.200 Nicotine dependence, unspecified, uncomplicated; F41.8 Other specified anxiety disorders; Z88.1 Allergy status to other antibiotic agents; Z91.040 Latex allergy status; Z88.8 Allergy status to other drugs, medicaments and biological substances; Z91.048 Other nonmedicinal substance allergy status; Z79.899 Other long term (current) drug therapy
CPT/HCPCS: 51701; 70450; 70496; 70498; 70551; 80053; 80061; 80320; 81003; 82550; 82803; 83036; 83735; 84443; 84484; 85025; 93005; 93010; 96361; 96372; 96374-59; 96375; 96376; 97162; 97530; 99285-25; A9270; G0378; J1650; J1885; J2765; J7030; J7512; Q9967

== ENCOUNTER → 2025-06-08 | Outpatient (CLI) | payer OTHER ==
[~2025-06-08] MED LIST changes: +BACL10 PO; +GABA300 PO
[2025-06-08 14:24] LABS: BASOPHILS ABSOLUTE AUTO 0.06 K/mm3 (0.00-0.23); BASOPHILS PERCENT AUTO 1 % (0-2); EOSINOPHILS ABSOLUTE AUTO 0.13 K/mm3 (0.00-0.68); EOSINOPHILS PERCENT AUTO 2 % (0-6); Hematocrit 48.7 % (33.0-51.0); Hemoglobin 16.1 g/dL (11.5-16.0); IMMATURE GRAN ABSOLUTE AUTO 0.01 K/mm3 (0.00-0.10); IMMATURE GRAN PERCENT AUTO 0 % (0-1); LYMPHOCYTES ABSOLUTE AUTO 1.89 K/mm3 (0.84-5.20); LYMPHOCYTES PERCENT AUTO 30 % (21-46); MONOCYTES ABSOLUTE AUTO 0.30 K/mm3 (0.16-1.47); MONOCYTES PERCENT AUTO 5 % (4-13); Mean Corpuscular HGB Conc 33.1 g/dL (31.5-36.5); Mean Corpuscular Volume 90 fL (80-100); NEUTROPHILS ABSOLUTE AUTO 4.00 K/mm3 (1.96-9.15); NEUTROPHILS PERCENT AUTO 63 % (41-73); NRBC ABSOLUTE 0.00 K/mm3 (0.00-0.02); NRBC Auto 0.0 /100 WBC (0.0-0.2); Platelet Count 292 K/mm3 (150-400); RDW Coefficient Variation 12.2 % (11.7-14.2); RDW Standard Deviation 40.1 fL (35.1-46.3)
[2025-06-08 15:47] LABS: Alanine Aminotransfer (ALT/SGP 29 U/L (12-78); Albumin, Blood 3.9 g/dL (3.4-5.0); Albumin/Globulin Ratio 1.0 (0.8-1.8); Anion Gap 9 mmol/L (3-11); Aspartate Aminotrans (AST/SGOT 15 U/L (12-37); Bilirubin, Total 0.6 mg/dL (0.1-1.0); Blood Urea Nitrogen 12 mg/dL (8-24); CHOL/HDL RATIO 4.0; CO2, Blood 26 mmol/L (21-32); Calcium, Blood 9.2 mg/dL (8.5-10.1); Chloride, Blood 105 mmol/L (98-108); Cholesterol 257 mg/dL (50-200); Creatinine, Blood 0.94 mg/dL (0.40-1.00); Globulin, Blood 3.8 g/dL (2.2-4.0); Glucose, Blood 87 mg/dL (70-99); HDL Cholesterol 65 mg/dL (>39); LDL/HDL RATIO 2.5; Low Density Lipoprotein Chol 164 mg/dL (0-110); Potassium, Blood 3.8 mmol/L (3.5-5.5); Sodium, Blood 136 mmol/L (136-145); Thyroid Stimulating Hormone 3.710 uIU/mL (0.360-4.800); Total Protein, Blood 7.7 g/dL (6.4-8.2); Triglycerides 138 mg/dL (30-160); Very Low Density Lipoprot Chol 27 mg/dL (6-32)
[2025-06-09 18:03] LABS: THYROGLOBULIN ANTIBODY <1.5 IU/mL (0.0-4.0); THYROID PEROXIDASE (TPO) AB 0.5 IU/mL (0.0-9.0)
== END ==
LOC: LAB 08:50 → LAB SHORT 08:50
PROVIDERS: Nurse Practitioner Family
DX: Z00.00 Encounter for general adult medical examination without abnormal findings (principal)
CPT/HCPCS: 80053; 80061; 83036; 84443; 85025; 86376; 86800